=== PATIENT | male | born 1970 | race Hispanic/Latino ===

== ENCOUNTER 2018-01-02 12:42 | Emergency (ER) | payer SELFPAY ==
[2018-01-02 12:51] VITALS: BP 124/79
--- NOTE | 2018-01-02 14:16 | XRay Report ---
FINAL REPORT EXAM: XR FOOT 3+V LT HISTORY: PAIN AND SWELLING TECHNIQUE: Three views left foot Comparison: None FINDINGS: Normal bony mineralization. Bipartite great toe ossicle. Calcific or ossific densities adjacent to the 1st digit proximal phalanx laterally. Erosion of the 2nd metatarsal head laterally. Mild degenerative joint space narrowing 1st metatarsophalangeal joint. No fracture or dislocation identified. Forefoot aligns normally with the midfoot. There is mature plantar calcaneal spur. Large accessory ossicle to the cuboid/os peroneum. IMPRESSION: Accessory ossicles as above. Correlate with pain. Possible erosion of the lateral aspect 2nd metatarsal head. If clinically indicated, recommend MRI of the left foot.
--- NOTE | 2018-01-02 15:50 | Emergency Department Report ---
ED Lower Extremity HPI - General Chief Complaint: Extremity Injury, Lower Stated Complaint: BROKE LT FOOT Time Seen by Provider: 01/02/18 15:37 Source: patient Mode of arrival: Ambulatory Limitations: No Limitations - History of Present Illness Initial Comments: Mr. Miller is a 47 yo male with left foot pain and swelling after falling in the middle of the night. He tripped over shoes and struck his foot on the floor. Tylenol did not provide relief. He avoids ibuprofen due to stomach upset. Foot pain in located at the medial aspect of the MTP joint on left foot with tenderness to any contact and bruising Pain improves with elevation MD Complaint: foot injury -: days(s) (3) Injury: Foot: Left Type of Injury: blunt Place: home Severity: moderate Improves With: rest Worsens With: weight bearing Context: fall, direct blow - Related Data Previous Rx's Medication Instructions Recorded Last Taken Type Acetaminophen [Extra Strength 500 mg PO Q6H #20 tablet 12/27/17 Unknown Rx Non-Aspirin] Allergies Allergy/AdvReac Type Severity Reaction Status Date / Time bee venom protein (honey bee) AdvReac Unknown Verified 01/02/18 12:47 ciprofloxacin [From Cipro] AdvReac Unknown Verified 01/02/18 12:47 paroxetine [From Paxil] AdvReac Unknown Verified 01/02/18 12:47 Penicillins AdvReac Unknown Verified 01/02/18 12:47 sulfamethoxazole AdvReac Unknown Verified 01/02/18 12:47 [From Bactrim] trimethoprim [From Bactrim] AdvReac Unknown Verified 01/02/18 12:47 ED Review of Systems ROS: Stated complaint: BROKE LT FOOT Other details as noted in HPI Constitutional: denies: fever, malaise Skin: denies: rash, lesions Neurological: denies: numbness, paresthesias ED Past Medical Hx - Past Medical History Hx Psychiatric Treatment: Yes (PTSD/ bipolar/ adhd) - Surgical History Additional Surgical History: back surgery 2009/ spinal fusion ACL - Social History Smoking Status: Never Smoker Substance Use Type: None - Medications Home Medications: Home Medications Medication Instructions Recorded Confirmed Last Taken Type Acetaminophen [Extra Strength 500 mg PO Q6H #20 tablet 12/27/17 Unknown Rx Non-Aspirin] ED Physical Exam - General Limitations: No Limitations, Language Barrier General appearance: alert, in no apparent distress, other (appears comfortable with feet elevated in recliner) - Head Head exam: Present: atraumatic, normocephalic - Respiratory Respiratory exam: Absent: respiratory distress - Extremities Exam Extremities exam: Present: other (tenderness at MTP, mild redness no edema 2+ DP pulse) - Neurological Exam Neurological exam: Present: alert, oriented X3 ED Course Vital Signs 01/02/18 12:47 Temperature 98 F Pulse Rate 86 Respiratory 20 Rate Blood Pressure 124/79 O2 Sat by Pulse 99 Oximetry ED Lower Extremity MDM - Radiology Data Radiology results: report reviewed left foot radiographs: erosion at second metatarsal, no fx - Medical Decision Making Mr. Miller has left foot contusion due to blunt force. I recommended ice and elevation. Critical care attestation.: If time is entered above; I have spent that time in minutes in the direct care of this critically ill patient, excluding procedure time. ED Disposition Clinical Impression: Contusion of foot, left Disposition: DC-01 TO HOME OR SELFCARE Is pt being admited?: No Does the pt Need Aspirin: No Condition: Stable Instructions: Foot Contusion (ED) Referrals: JOSHUA ÁLVAREZ MD [Staff Physician] - as needed
== END 2018-01-02 16:20 | disposition home or self-care (01) ==
LOC: ED 12:42
DX: S90.32XA Contusion of left foot, initial encounter (principal); F43.10 Post-traumatic stress disorder, unspecified; F90.9 Attention-deficit hyperactivity disorder, unspecified type; F31.9 Bipolar disorder, unspecified; Z88.0 Allergy status to penicillin; Z88.1 Allergy status to other antibiotic agents; Z88.2 Allergy status to sulfonamides; Z91.030 Bee allergy status; W01.198A Fall on same level from slipping, tripping and stumbling with subsequent striking against other object, initial encounter; Y93.89 Activity, other specified; Y99.8 Other external cause status; Y92.019 Unspecified place in single-family (private) house as the place of occurrence of the external cause
CPT/HCPCS: 99283

== ENCOUNTER 2018-07-11 19:13 | Inpatient (IN) | payer SELFPAY ==
--- NOTE | 2018-07-11 21:46 | XRay Report ---
PROCEDURE: XR CHEST ROUTINE 2V TECHNIQUE: 2 view chest HISTORY: Chest Pain COMPARISONS: FINDINGS: Cardiac and mediastinal contours are unremarkable. No focal pulmonary infiltrate identified. No pleur al fluid collection seen. Pulmonary vasculature is unremarkable. IMPRESSION: Negative two-view chest. This document is electronically signed by Navi Greene MD., July 11 2018 09:45:00 PM ET
[2018-07-11 21:47] LABS: Basophils # (Auto) 0.1 K/mm3 (0.0-0.1); Basophils % (Auto) 1.2 % (0.0-1.8); Eosinophils % (Auto) 0.7 % (0.0-4.3); Hematocrit 40.7 % (35.5-45.6); Hemoglobin 13.9 gm/dl (11.8-15.2); Lymphocytes % (Auto) 42.1 % (13.4-35.0); Mean Corpuscular HGB Conc 34 % (32-34); Mean Corpuscular Volume 96 fl (84-94); Monocytes # (Auto) 0.7 K/mm3 (0.0-0.8); Monocytes % (Auto) 10.1 % (0.0-7.3); Platelet Count 254 K/mm3 (140-440); Red Blood Count 4.26 M/mm3 (3.65-5.03); Red Cell Distribution Width 13.7 % (13.2-15.2)
[2018-07-11 21:58] LABS: INR 1.03 (0.87-1.13)
[2018-07-11 21:59] LABS: Partial Thromboplastin Time 24.2 Sec. (24.2-36.6)
[2018-07-11 22:19] LABS: Alanine Aminotransferase 20 units/L (7-56); BUN/Creatinine Ratio 17; Blood Urea Nitrogen 17 mg/dL (9-20); Calcium 9.3 mg/dL (8.4-10.2); Hemolysis Index 4
[2018-07-11] MEDS ORDERED: BABY ASPIRIN PO ONE (23:08)
[2018-07-11] MEDS ORDERED: PEPCID IV ONE (23:08)
[2018-07-11] MEDS ORDERED: NITROSTAT SL PRN (23:08)
--- NOTE | 2018-07-11 23:10 | Emergency Department Report ---
ED Chest Pain HPI - General Chief Complaint: Chest Pain Stated Complaint: CHEST, LEFT ARM,JAW PAIN Time Seen by Provider: 07/11/18 22:46 Source: patient, RN notes reviewed, old records reviewed Mode of arrival: Ambulatory Limitations: No Limitations - History of Present Illness Initial Comments: This is a pleasant 48-year-old gentleman. The patient is not known to this provider previously. He reports that he does not have a local primary care doctor. He has a history of well-maintained bipolar disorder. The patient presents to the emergency room with a complaint of nontraumatic exertional chest pain. The chest pain is left-sided. It started earlier on yesterday while he was performing a bicycle ride for recreation. The chest pain is described as aching and throbbing and pressure-like in nature. It is intermittent, associated with diaphoresis, and radiation left arm, and neck. It waxes and wanes. He denies headache, abdominal pain, endorses intermittent shortness of breath, and denies DVT, pulmonary embolus risk factors. No recent aspirin consumption. No recent cardiac risk stratification. No family history of heart disease that he is aware. Chest pain is rated as much improved at this point in time MD Complaint: chest pain -: Gradual Onset: during exertion Pain Location: left chest Pain Radiation: LUE, jaw/teeth Severity: moderate Severity scale (0 -10): 5 Quality: aching Consistency: intermittent Improves With: rest Worsens With: exertion re: diaphoresis, dyspnea Treatments Prior to Arrival: none Aspirin use within the Past 7 Days: (0) No - Related Data Previous Rx's Medication Instructions Recorded Last Taken Type Acetaminophen [Extra Strength 500 mg PO Q6H #20 tablet 12/27/17 Unknown Rx Non-Aspirin] Allergies Allergy/AdvReac Type Severity Reaction Status Date / Time bee venom protein (honey bee) AdvReac Unknown Verified 01/02/18 12:47 ciprofloxacin [From Cipro] AdvReac Unknown Verified 01/02/18 12:47 paroxetine [From Paxil] AdvReac Unknown Verified 01/02/18 12:47 Penicillins AdvReac Unknown Verified 01/02/18 12:47 sulfamethoxazole AdvReac Unknown Verified 01/02/18 12:47 [From Bactrim] trimethoprim [From Bactrim] AdvReac Unknown Verified 10/21/18 12:47 Heart Score - HEART Score History: Highly suspicious EKG: Non-specific Age: 45-65 Risk factors: No known risk factors Troponin: < normal limit HEART Score: 4 - Critical Actions Critical Actions: 0-3 pts:0.9-1.7%risk of adverse cardiac event.Candidate for discharge ED Review of Systems ROS: Stated complaint: CHEST, LEFT ARM,JAW PAIN Other details as noted in HPI Constitutional: denies: fever Eyes: denies: eye discharge ENT: denies: epistaxis Respiratory: shortness of breath Cardiovascular: chest pain Gastrointestinal: denies: vomiting Genitourinary: denies: dysuria Musculoskeletal: denies: back pain Skin: denies: lesions Neurological: paresthesias Psychiatric: anxiety Hematological/Lymphatic: denies: easy bleeding ED Past Medical Hx - Past Medical History Hx Psychiatric Treatment: Yes (PTSD/ bipolar/ adhd) - Surgical History Additional Surgical History: back surgery 2009/ spinal fusion ACL - Social History Smoking Status: Never Smoker Substance Use Type: None - Medications Home Medications: Home Medications Medication Instructions Recorded Confirmed Last Taken Type Acetaminophen [Extra Strength 500 mg PO Q6H #20 tablet 12/27/17 Unknown Rx Non-Aspirin] ED Physical Exam - General Limitations: No Limitations General appearance: alert, anxious - Head Head exam: Present: atraumatic, normocephalic - Eye Eye exam: Present: normal appearance, EOMI. Absent: nystagmus - ENT ENT exam: Present: normal exam, normal orophraynx, mucous membranes moist, normal external ear exam - Neck Neck exam: Present: normal inspection, full ROM. Absent: tenderness, meningismus - Respiratory Respiratory exam: Present: normal lung sounds bilaterally. Absent: respiratory distress - Cardiovascular Cardiovascular Exam: Present: regular rate, normal rhythm, normal heart sounds. Absent: bradycardia, tachycardia, irregular rhythm, systolic murmur, diastolic murmur, rubs, gallop - GI/Abdominal GI/Abdominal exam: Present: soft. Absent: distended, tenderness, guarding, rebound, rigid, pulsatile mass - Rectal Rectal exam: Present: deferred - Extremities Exam Extremities exam: Present: normal inspection, full ROM, other (2+ pulses noted in the bilateral upper, lower extremities. Compartments soft. No long bony tenderness. The pelvis is stable.). Absent: tenderness, pedal edema, joint swelling, calf tenderness - Back Exam Back exam: Present: normal inspection, full ROM. Absent: tenderness, CVA tenderness (R), paraspinal tenderness, vertebral tenderness - Neurological Exam Neurological exam: Present: alert, oriented X3, other (Extraocular movements int act. Tongue midline. No facial droop. Facial sensation intact to light touch in the V1, V2, V3 distribution bilaterally. 5 and 5 strength in 4 extremities.. Sensation is intact to light touch in 4 extremities.). Absent: motor sensory deficit - Psychiatric Psychiatric exam: Present: anxious - Skin Skin exam: Present: warm, dry, intact, normal color. Absent: rash ED Course Vital Signs 07/11/18 07/11/18 07/11/18 19:41 22:52 23:47 Temperature 98.6 F Pulse Rate 83 68 Respiratory 18 17 Rate Blood Pressure 130/85 [Right] O2 Sat by Pulse 97 100 Oximetry BRADEN score - Braden Score Age > 65: (0) No Aspirin use within the Past 7 Days: (0) No 3 or more CAD Risk Factors: (0) No 2 or more Angina events in past 24 hrs: (1) Yes Known CAD with more than 50% Stenosis: (0) No Elevated Cardiac Markers: (0) No ST Deviation Greater than 0.5mm: (0) No BRADEN Score: 1 ED Medical Decision Making - Lab Data Result diagrams: 07/11/18 21:35 07/11/18 21:35 Vital Signs 07/11/18 07/11/18 07/11/18 19:41 22:52 23:47 Temperature 98.6 F Pulse Rate 83 68 Respiratory 18 17 Rate Blood Pressure 130/85 [Right] O2 Sat by Pulse 97 100 Oximetry Labs 07/11/18 07/11/18 07/11/18 21:35 21:35 21:35 WBC 7.1 RBC 4.26 Hgb 13.9 Hct 40.7 MCV 96 H MCH 33 H MCHC 34 RDW 13.7 Plt Count 254 Lymph % (Auto) 42.1 H [place] % (Auto) 10.1 H Eos % (Auto) 0.7 Baso % (Auto) 1.2 Lymph # 3.0 [place] # 0.7 Eos # 0.0 Baso # 0.1 Seg Neutrophils % 45.9 Seg Neutrophils # 3.3 PT 14.1 INR 1.03 APTT 24.2 Sodium 140 Potassium 4.1 Chloride 102.8 Carbon Dioxide 25 Anion Gap 16 BUN 17 Creatinine 1.0 Estimated GFR > 60 BUN/Creatinine Ratio 17 Glucose 98 Calcium 9.3 Total Bilirubin 0.70 AST 22 ALT 20 Alkaline Phosphatase 52 Troponin T < 0.010 Total Protein 7.3 Albumin 5.0 Albumin/Globulin Ratio 2.2 - EKG Data -: EKG Interpreted by Me EKG shows normal: sinus rhythm Rate: normal - EKG Data When compared to previous EKG there are: previous EKG unavailable 07/12/18 00:34 There is no prior EKG for comparison. This is a normal sinus rhythm, 73 beats per minute, left axis deviation, left anterior fascicular block, abnormal EKG, not consistent with ST elevation myocardial infarction, there is no prior for comparison. - Radiology Data Radiology results: report reviewed, image reviewed X-ray the chest is interpreted as negative for acute disease. - Medical Decision Making Differential diagnosis, including not limited to: GERD, gastritis, hiatal hernia, acute coronary syndrome, pericarditis, myocarditis Assessment and plan: 48-year-old gentleman, no pulmonary embolus or DVT risk factors, low risk by well's criteria, perc negative, with chest pain that is historically concerning. He reports minimal discomfort at this time. Troponin negative 1. EKG nonspecific. We have recommended admission to the hospital for cardiac risk stratification. Discussed this with the patient. He verbalizes understanding. He is amenable to hospitalization. The patient will be placed on the chest pain protocol, and he will be evaluated for moderate risk symptomatology. The case is presented to the Hospital physician, Dr. Dash Jacques, who has accepted the patient to medical service for cardiac risk stratification Critical care attestation.: If time is entered above; I have spent that time in minutes in the direct care of this critically ill patient, excluding procedure time. ED Disposition Clinical Impression: Chest pain Qualifiers: Chest pain type: other chest pain Qualified Code(s): R07.89 - Other chest pain Disposition: 09 OP ADMIT IP TO THIS HOSP Is pt being admited?: Yes Condition: Good Instructions: Chest Pain (ED) Referrals: ILIANA JACOB MD [Primary Care Provider] - 3-5 Days
[2018-07-12] MEDS ORDERED: ZOFRAN IV PRN (00:25)
[2018-07-12] MEDS ORDERED: TYLENOL PO PRN (00:25)
[2018-07-12] MEDS: MORPHINE IV PRN ×4 (00:33→13:23)
--- NOTE | 2018-07-12 03:43 | History and Physical Report ---
CHIEF COMPLAINT: Chest pain. HISTORY OF PRESENTING ILLNESS: The patient is a 48-year-old male. He said he has been having precordial chest pain and pain radiates to the left upper extremity. The patient states pain started a day prior to presentation while he was performing a bicycle ride for recreation. Pain is throbbing and pressure like in nature, intermittent and was associated with diaphoresis, shortness of breath, and nausea, but no vomiting. There is also no history of fever or chills and no history of cough and pain is not affected by movement or breathing and the patient presented for evaluation. PAST MEDICAL HISTORY: Pertinent for PTSD, bipolar disorder, attention deficit hyperactivity disorder. PAST SURGICAL HISTORY: Pertinent for back surgery and spinal fusion surgery. FAMILY HISTORY: Pertinent for some heart disease in the maternal uncles and aunties. SOCIAL HISTORY: The patient does not smoke, drinks alcohol occasionally, and does not use illicit drugs. MEDICATIONS: The patient is on extra strength Tylenol 500 mg by mouth every 6 hours. ALLERGIES: THE PATIENT IS ALLERGIC TO BEE STING, CIPROFLOXACIN, AND PAROXETINE. REVIEW OF SYSTEMS: CONSTITUTIONAL: There is no fever, no chills. Diaphoresis is present. HEENT: There is no headache or sore throat. CARDIOVASCULAR SYSTEM: Chest pain is present. No orthopnea. RESPIRATORY SYSTEM: Shortness of breath is present. No cough. GASTROINTESTINAL SYSTEM: There is nausea, but no vomiting, no abdominal pain, diarrhea, or constipation. NEUROLOGICAL SYSTEM: There is no numbness, no dizziness, no altered mental status. MUSCULOSKELETAL SYSTEM: There is no joint pain or swelling. DERMATOLOGICAL SYSTEM: There is no skin rash or itching. GENITOURINARY SYSTEM: There is no dysuria, hematuria, or flank pain. Rest of system review is normal. PHYSICAL EXAMINATION: GENERAL: At the time of exam, the patient was found to be alert, oriented x 3, and not in acute distress. VITAL SIGNS: At the initial time of presentation showed temperature of 98.6 degrees Fahrenheit, pulse of 83, respirations 18, blood pressure 130/85, O2 sat of 97% on room air. HEENT: Showed pupils to be equal, round, reactive to light and accommodation. Extraocular muscles were intact. NECK: Supple with no JVD or carotid bruits. CARDIOVASCULAR SYSTEM: Showed normal first and second heart sounds with no gallops or murmur. RESPIRATORY SYSTEM: Showed good air entry on both sides of the lungs with no abnormal breath sounds. GASTROINTESTINAL SYSTEM: Showed abdomen to be full, soft, nontender with no organomegaly or rigidity. NEUROLOGICAL: Showed no focal deficit. MUSCULOSKELETAL SYSTEM: Showed no joint swelling or tenderness. DERMATOLOGIC SYSTEM: Showed no skin rash. GENITOURINARY SYSTEM: Showing no costovertebral angle tenderness. PERTINENT LABORATORY AND IMAGING STUDIES: The patient has CBC done with normal white count, normal hemoglobin, and normal hematocrit with CBC differential showing elevated lymphocyte count of 42.1% and elevated monocyte count of 10.1%. The patient's coagulation studies were unremarkable. Chemistry came back unremarkable. Imaging studies: The patient had chest x-ray done, which came back showing no cardiopulmonary abnormality. DIAGNOSIS: Chest pain. PLAN OF CARE; 1. The patient will be admitted to telemetry. 2. The patient will have serial cardiac enzymes involving troponin, total CK and CK-MB checked every 6 hours x 2 levels. 3. The patient will be n.p.o. and will have Lexiscan stress test done in the morning. 4. The patient will be on aspirin 325 mg by mouth daily. 5. The patient will be on IV morphine 2 mg every 3 hours as needed for pain and IV Zofran 4 mg every 8 hours for nausea and vomiting. 6. The patient will be on nitro paste half inch q.i.d. and also the patient will be on Nitrostat 0.4 mg every 5 minutes as needed for break through chest pain. 7. The patient will be on Tylenol 650 mg by mouth every 4 hours for fever and headache and will be on heparin 5000 units subcutaneous q. 12 hours for DVT prophylaxis. 8. The patient will be on oxygen by nasal cannula at 2 L/min. JOB# [id number] OCN/NTS MTDD
[2018-07-12] MEDS: NITRO-BID 2% TP SCH ×2 (06:25→12:38)
--- NOTE | 2018-07-12 09:57 | Discharge Summary ---
Providers - Providers Date of Admission: 07/12/18 00:21 Attending physician: SERGEI BRUNSON MD [facility] Condition: Fair Hospital course: 48 year old man with history of well-treated uncontrolled bipolar disorder presented with chest pain which was related to food. Acute coronary syndrome was ruled out. he went on to have a stress test that was negative. He was given a trial of PPI Diagnosis Chest pain due to GERD Disposition: DC-01 TO HOME OR SELFCARE Time spent for discharge: 33 mins Core Measure Documentation - Palliative Care Palliative Care/ Comfort Measures: Not Applicable - Core Measures Any of the following diagnoses?: none Exam - Constitutional Vitals: Temp Pulse Resp BP Pulse Ox 98.3 F 60 18 107/61 94 07/12/18 07:43 07/12/18 06:25 07/12/18 07:43 07/12/18 07:43 07/12/18 04:00 General appearance: Present: no acute distress, well-nourished - EENT Eyes: Present: PERRL ENT: hearing intact, clear oral mucosa - Neck Neck: Present: supple, normal ROM - Respiratory Respiratory effort: normal Respiratory: bilateral: CTA - Cardiovascular Heart Sounds: Present: S1 & S2. Absent: rub, click - Extremities Extremities: pulses symmetrical, No edema Peripheral Pulses: within normal limits - Abdominal General gastrointestinal: Present: soft, non-tender, non-distended, normal bowel sounds Male genitourinary: Present: normal - Integumentary Integumentary: Present: clear, warm, dry - Musculoskeletal Musculoskeletal: gait normal, strength equal bilaterally - Psychiatric Psychiatric: appropriate mood/affect, intact judgment & insight - Neurologic Neurologic: CNII-XII intact, moves all extremities Plan Follow up with: ILIANA JACOB MD [Primary Care Provider] - 3-5 Days Prescriptions: Pantoprazole [Protonix] 40 mg PO QDAY #30 tablet
[2018-07-12] MEDS ORDERED: HEPARIN SUB-Q SCH (10:00)
[2018-07-12] MEDS ORDERED: ASPIRIN PO SCH (10:00)
[2018-07-12 13:50] LABS: Creatine Kinase MB 1.8 ng/mL (0.0-4.0)
[2018-07-12 13:56] VITALS: BP 136/81
--- NOTE | 2018-07-12 22:13 | Treadmill Report ---
THALLIUM STRESS TEST LEFT VENTRICLE: Left ventricular chamber size is within normal spread. Perfusion study demonstrates homogeneous uptake of the tracer in all segments, no significant perfusion defects identified. Gated analysis demonstrates normal left ventricular systolic function, ejection fraction 55%. CONCLUSION: Normal myocardial perfusion study. JOB# [id number] CA/NTS
== END 2018-07-12 15:20 | disposition home or self-care (01) | DRG 392 ==
LOC: ED 19:13 → 4A 07-12 00:21
PROVIDERS: ADMIT Internal Medicine; ATTEND Internal Medicine
DX: K21.9 Gastro-esophageal reflux disease without esophagitis (principal); F31.9 Bipolar disorder, unspecified; F43.10 Post-traumatic stress disorder, unspecified; Z72.89 Other problems related to lifestyle; Z91.030 Bee allergy status; Z88.0 Allergy status to penicillin; Z88.2 Allergy status to sulfonamides; Z79.899 Other long term (current) drug therapy
CPT/HCPCS: 36415; 71046; 78452; 80053; 82550; 82553; 84484; 85025; 85610; 85730; 93005; 93010; 93017; G0378; A9502; J1644; J2270